=== PATIENT | male | born 1990 | race Caucasian/White ===

== ENCOUNTER 2021-04-04 16:54 | Emergency (ER) | payer OTHER, SELFPAY ==
[2021-04-04 17:02] VITALS: BP 151/71; PULSE 96; RESP 19; TEMP 36.8; O2SAT 99; BMI 33.7
--- NOTE | 2021-04-04 17:06 | DI.RAD.S_ITS ---
PROCEDURE: XR FINGER RT MIN 2V INDICATIONS: finger injury TECHNIQUE: AP hand, 2 views of the right thumb acquired. COMPARISON: None. FINDINGS: Bones: No fractures or dislocations. No suspicious bony lesions. Soft tissues: No suspicious soft tissue calcifications. IMPRESSION: No evidence acute bony abnormality of the right thumb Dictated by: Bonifacio Sanedrson M.D. on 04/04/2021 at 16:20 Approved by: Bonifacio Sanderson M.D. on 04/04/2021 at 16:21
--- NOTE | 2021-04-04 19:41 | ED_ITS ---
HPI - Extremity Injury (Upper) General Chief Complaint: Extremity Injury, Upper Stated Complaint: Hurt Right Thumb at Work Time Seen by Provider: 04/04/21 19:31 Source: patient Mode of arrival: Family Vehicle Limitations: no limitations History of Present Illness HPI narrative: Patient is a 30-year-old male who presents with right thumb injury. 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 He says it is required that they do physical activity said they were playing ultimate [employer] he had somebody else went to catch a Frisbee at the same time and collided thumbs. He has pain in his right thumb. No numbness tingling. But has some weakness and tenderness on his tendon. Related Data Allergies Allergy/AdvReac Type Severity Reaction Status Date / Time No Known Drug Allergies Allergy Verified 04/04/21 17:05 Review of Systems Review of Systems Narrative: GENERAL: Denies chills,fever HEENT: Denies throat pain RESPIRATORY: Denies dyspnea, cough, wheezing CARDIOVASCULAR: Denies chest pain, palpitations GASTROINTESTINAL: Denies nausea, vomiting MUSCULOSKELETAL: See HPI SKIN: No rash, no laceration, no pruritus NEUROLOGIC: Denies weakness, dizziness, headache, numbness 8 point review of systems is negative except for those stated above and HPI Patient History Social History Smoking Status: Never smoker Smoking Status: Never smoker alcohol intake frequency: 0-2 drinks per day Substance Use Type: does not use Exam Initial Vital Signs Initial Vital Signs: Vital Signs Temperature 98.2 F 04/04/21 17:02 Pulse Rate 96 H 04/04/21 17:02 Respiratory Rate 19 04/04/21 17:02 Blood Pressure 151/71 H 04/04/21 17:02 Pulse Oximetry 99 04/04/21 17:02 GENERAL: Well-appearing, well-nourished and in no acute distress. CARDIOVASCULAR: peripheral pulses in tact, cap refill <2 sec RESPIRATORY: No respiratory distress, speaks in full sentences without difficulty EXTREMITIES: Normal range of motion, no clubbing or edema. Neurovascularly intact Right thumb full flexion and extension no pain with resistance and scaphoid, no significant swelling cap refill less than 2 seconds sensation intact between at some and index finger cardiology nurse practitioner strength is decreased NEUROLOGICAL: Cranial nerves II through XII grossly intact. Normal gait and speech. SKIN: Warm, dry, no petechiae, no rashes or lesions. Procedures Orthopedic Splinting/Casting Injury #1: Side: right Upper Extremity Injury Location: finger Upper Extremity Immobilizer: thumb spica Post splinting neuro exam: intact Post splinting vascular exam: intact Placed by: Nursing Course Orders Ordered: ED Orders 04/04/21 17:06 XR finger RT min 2V Stat Vital Signs Vital signs: Vital Signs - 8 hr 04/04/21 17:02 Temperature 98.2 F Pulse Rate 96 H Respiratory Rate 19 Blood Pressure 151/71 H Pulse Oximetry 99 MDM - Extremity Injury (Upper) Imaging Data Extremity x-ray #1: Radiologist's Impression: PROCEDURE: XR FINGER RT MIN 2V INDICATIONS: finger injury TECHNIQUE: AP hand, 2 views of the right thumb acquired. COMPARISON: None. FINDINGS: Bones: No fractures or dislocations. No suspicious bony lesions. Soft tissues: No suspicious soft tissue calcifications. IMPRESSION: No evidence acute bony abnormality of the right thumb Dictated by: Bonifacio Sanderson M.D. on 04/04/2021 at 16:20 MDM Narrative Medical decision making narrative: Patient has pain with movement no significant swelling cardiology nurse practitioner strength is slightly decreased. Discharge Plan Departure Patient Disposition: Home Clinical Impression: Sprain of hand, thumb, right Instructions: Ulnar Collateral Ligament Sprain of Thumb Activity Restrictions/Additional Instructions: *You have been diagnosed with right thumb sprain *What to do: Wear brace as tolerated. Please a primary care provider before full clearance back to work. Elevate, ice *Continue to take medications as directed Motrin 800 mg every 8 hours if needed for [id number] *Follow up with your primary care provider in 2-3 days *Return to ER if you should have pain or swelling or any new, worsening or concerning symptoms
== END 2021-04-04 20:12 | disposition home or self-care (01) ==
PROVIDERS: Emergency Provider Emergency Medicine
DX: S63.601A Unspecified sprain of right thumb, initial encounter (principal); X58.XXXA Exposure to other specified factors, initial encounter
CPT/HCPCS: 73140; 99283